=== PATIENT | female | born 1980 | race Caucasian/White ===

== ENCOUNTER → 2023-10-02 | Emergency (ER) | payer SELFPAY ==
[~2023-10-02] MED LIST: HALOPERIDOL LACT 5 MG/ML INJ ONE; KETOROLAC 30 MG/ML INJ ONE; MORPHINE 4 MG/ML SYR ONE; NA CHLORIDE 0.9% 50 ML ONE; ONDANSETRON 4 MG/2 ML VIAL ONE
--- OUTSIDE RECORDS SUMMARY | 2023-10-02 06:31 | XMS REPORT | Continuity of Care Document ---
Author Name Unknown Address [address] [facility] [address] [place] [address] [facility] Address [address] [facility] [address] [place] [address] Care Team Providers Care Collection Supervisor Name Role Phone Unavailable Unavailable Unavailable Encounters Start Date/Time End Date/Time Encounter Type Admission Type Attending Clinicians [facility] Facility Care Department Encounter ID Source 2023-08-25 08:32:28 2023-08-25 08:32:28 Outpatient SFA SFA [id number] Eyad Smith [place] 2023-07-24 08:30:50 2023-07-24 08:30:50 Outpatient SFA SFA [id number] Eyad Smith [place] 2023-06-24 08:14:12 2023-06-24 08:14:12 Outpatient SFA SFA [id number] Eyad Smith [place] 2023-06-04 10:44:13 2023-06-04 10:44:13 Outpatient SFA SFA 23 Eyad Smith [place] 2023-06-02 11:11:12 2023-06-02 11:11:12 Outpatient SFA SFA [id number] Eyad Smith [place] 2023-05-22 08:34:42 2023-05-22 08:34:42 Outpatient SFA SFA [id number] Eyad Smith [place] 2023-04-21 08:22:11 2023-04-21 08:22:11 Outpatient SFA SFA [id number] Eyad Smith [place] 2023-03-17 08:56:47 2023-03-17 08:56:47 Outpatient SFA SFA [id number] Eyad Smith [place] 2023-02-13 09:17:17 2023-02-13 09:17:17 Outpatient SFA SFA [id number] Eyad He 2023-01-15 08:26:35 2023-01-15 08:26:35 Outpatient [facility] [id number] Eyad He 2023-01-01 08:32:25 2023-01-01 08:32:25 Outpatient [facility] [id number] Eyad He 2022-12-18 08:30:01 2022-12-18 08:30:01 Outpatient [facility] [id number] Eyad He 2022-10-03 09:52:23 2022-10-03 09:52:23 Outpatient [facility] [id number] Eyad He Results Test Description Test Time Test Comments Results Result Co mments Source SCR MAMM BILATERAL ASHLEY CAD DIGITAL 2023-02-05 15:49:25 Name: Rosibel : 1980 Sex: F * - SCR MAMM BILATERAL ASHLEY CAD DIGITALBILATERAL DIGITAL SCREENING MAMMOGRAM 3D/2D WITH CAD: 01/31/2023LINICAL: Asymptomatic. Digital breast tomosynthesis was performed in addition to routine CC and MLO views. Current mammographic images were evaluated by [employer] CAD (computer-aided detection) software. Comparison is made to exam dated 06/02/2020 mammogram - [facility]. The tissue of both breasts is predominantly fatty. No suspicious mass, architectural distortion, malignant type calcification, or lymph node abnormality detected. Breast architecture is stable compared to prior exams.IMPRESSION: BENIGNThere is no mammographic evidence of malignancy. Resume annual screening mammography in one year. (02/01/2024) Lula mitchell/penrad:02/05/2023 15:49:25 Sales Operations: Deidra Martinez FW, [facility]-FWletter sent: BIRADS 1-2 Normal Mammogram BI-RADS: 2 Benign TSH, THIRD [id number] 06:09:24* Test Item Value Reference Range Interpretation Comme nts TSH, THIRD GENERATION (test code = 2821) 1.320 UIU/ML 0.400-4.100 [facility] has impo rtant pathology staff changes effective 12/11/2022. New pathology staff will provide uninterrupted, excellent patient care and clinical consultation. See URL: [email or web address]. UNLESS OTHERWISE INDICATED, ALL TESTING PERFORMED AT [facility] [address] [place] [id number] NET SQL DEVELOPER: MAYRA MARAVILLA M.D. CLIA NUMBER [id number] [place]. [id number] COMPREHENSIVE METABOLIC [id number] 04:57:47* Test Item Value Reference Range Interpretation Comme nts GLUCOSE (test code = 2217) 113 MG/DL 70-99 H BUN (test code = 2208) 15 MG/DL 6-20 CREATININE (test code = 2214) 0.61 MG/DL 0.60-1.30 eGFR (2020 CKD-EPI) (test code = 64971) 113 ML/MIN/1.73 >60 CALC BUN/CREAT (test code = 2235) 25 RATIO 6-28 SODIUM (test code = 2231) 139 MEQ/L 133-146 POTASSIUM (test code = 2228) 4.5 MEQ/L 3.5-5.4 CHLORIDE (test code = 2215) 100 MEQ/L 95-107 CARBON DIOXIDE (test code = 2206) 24 MEQ/L 19-31 CALCIUM (test code = 2209) 10.3 MG/DL 8.5-10.5 PROTEIN, TOTAL (test code = 2229) 7.3 G/DL 6.1-8.3 ALBUMIN (test code = 2201) 4.6 G/DL 3.5-5.2 CALC GLOBULIN (test code = 2240) 2.7 G/DL 1.9-3.7 CALC A/G RATIO (test code = 2234) 1.7 RATIO 1.0-2.6 BILIRUBIN, TOTAL (test code = 7) 0.4 MG/DL See_Comment [Automated me ssage] The system which generated this result transmitted reference range: <=1.2. The reference range was not used to interpret this result as normal/abnormal. ALKALINE PHOSPHATASE (test code = 4) 102 U/L 40-115 AST (test code = 8) 12 U/L 9-40 ALT (test code = 9) 15 U/L 5-40 LIPID [id number] 04:57:47* Test Item Value Reference Range Interpretation Comme nts CHOLESTEROL (test code = 0) 204 MG/DL <200 H TRIGLYCERIDES (test code = 2) 126 MG/DL <150 HDL CHOLESTEROL (test code = 0) 59 MG/DL >39 CALC LDL CHOL (test code = 2236) 121 MG/DL <100 H NOTE: CALCULATED LDL IS BASED ON CHRISTINE-MOTA METHOD WHICHINCLUDES ADJUSTABLE TRIGLYCERIDE:VLDL CHOLESTEROL RATIO.THIS FACTOR VARIES BY MEASURED TRIGLYCERIDE AND NON-HDLCHOLESTEROL CONCENTRATIONS WITH INCREASED CALCULATED LDL SEENIN HIGHER TRIGLYCERIDE OR LOWER NON-HDL SPECIMENS. FOR MOREINFORMATION, SEE CLIENT ANNOUNCEMENT AT [email or web address] [email or web address] RATIO LDL/HDL (test code = 2237) 2.05 RATIO <3.22 HEMOGLOBIN [id number] 03:35:58* Test Item Value Reference Range Interpretation Comme nts HEMOGLOBIN A1c (test code = 79636) 5.6 % 4.2-5.6 CBC W/AUTO DIFF WITH [id number] 03:10:01* Test Item Value Reference Range Interpretation Comme nts WBC (test code = 1001) 8.6 K/UL 3.5-11.0 RBC (test code = 1002) 4.87 M/UL 3.80-5.40 HEMOGLOBIN (test code = 1003) 14.4 G/DL 11.5-15.5 HEMATOCRIT (test code = 1004) 43.3 % 34.0-45.0 MCV (test code = 1005) 88.9 fL 80.0-99.0 MCH (test code = 1006) 29.6 PG 25.0-33.0 MCHC (test code = 1007) 33.3 G/DL 31.0-36.0 RDW (test code = 1038) 13.0 % 11.5-15.0 NEUTROPHILS (test code = 1008) 76.9 % LYMPHOCYTES (test code = 1010) 17.6 % MONOCYTES (test code = 1011) 4.0 % EOSINOPHILS (test code = 1012) 0.7 % BASOPHILS (test code = 1013) 0.5 % IMMATURE GRANULOCYTES (test code = 1036) 0.3 % NUCLEATED RBCS (test code = 1065) 0.0 /100 WBC'S See_Comment [Automated messa ge] The system which generated this result transmitted reference range: 0.0. The reference range was not used to interpret this result as normal/abnormal. PLATELET COUNT (test code = 1015) 437 K/UL 130-400 H ABSOLUTE NEUTROPHILS (test code = 1066) 6.61 K/UL 1.50-7.50 ABSOLUTE LYMPHOCYTES (test code = 1067) 1.51 K/UL 1.00-4.00 ABSOLUTE MONOCYTES (test code = 1068) 0.34 K/UL 0.20-1.00 ABSOLUTE EOSINOPHILS (test code = 1040) 0.06 K/UL 0.00-0.50 ABSOLUTE BASOPHILS (test code = 1069) 0.04 K/UL 0.00-0.20 ABS IMMATURE GRANULOCYTES (test code = 1020) 0.03 K/UL 0.00-0.10 ABS NUCLEATED RBCS (test code = 32837) 0.00 K/UL 0.00-0.11 CBC W/AUTO DIFF WITH [id number] 03:55:08* Test Item Value Reference Range Interpretation Comme nts WBC (test code = 1001) 7.1 K/UL 3.5-11.0 RBC (test code = 1002) 5.03 M/UL 3.80-5.40 HEMOGLOBIN (test code = 1003) 14.3 G/DL 11.5-15.5 HEMATOCRIT (test code = 1004) 43.7 % 34.0-45.0 MCV (test code = 1005) 86.9 fL 80.0-99.0 MCH (test code = 1006) 28.4 PG 25.0-33.0 MCHC (test code = 1007) 32.7 G/DL 31.0-36.0 RDW (test code = 1038) 13.2 % 11.5-15.0 NEUTROPHILS (test code = 1008) 61.4 % LYMPHOCYTES (test code = 1010) 30.2 % MONOCYTES (test code = 1011) 4.7 % EOSINOPHILS (test code = 1012) 2.8 % BASOPHILS (test code = 1013) 0.6 % IMMATURE GRANULOCYTES (test code = 1036) 0.3 % NUCLEATED RBCS (test code = 1065) 0.0 /100 WBC'S See_Comment [Automated messa ge] The system which generated this result transmitted reference range: 0.0. The reference range was not used to interpret this result as normal/abnormal. PLATELET COUNT (test code = 1015) 415 K/UL 130-400 H ABSOLUTE NEUTROPHILS (test code = 1066) 4.33 K/UL 1.50-7.50 ABSOLUTE LYMPHOCYTES (test code = 1067) 2.13 K/UL 1.00-4.00 ABSOLUTE MONOCYTES (test code = 1068) 0.33 K/UL 0.20-1.00 ABSOLUTE EOSINOPHILS (test code = 1040) 0.20 K/UL 0.00-0.50 ABSOLUTE BASOPHILS (test code = 1069) 0.04 K/UL 0.00-0.20 ABS IMMATURE GRANULOCYTES (test code = 1020) 0.02 K/UL 0.00-0.10 ABS NUCLEATED RBCS (test code = 28168) 0.00 K/UL 0.00-0.11 COMPREHENSIVE METABOLIC [id number] 03:41:26* Test Item Value Reference Range Interpretation Comme nts GLUCOSE (test code = 2217) 96 MG/DL 70-99 BUN (test code = 2207) 12 MG/DL 6-20 CREATININE (test code = 2214) 0.57 MG/DL 0.60-1.30 L eGFR (2020 CKD-EPI) (test code = 07603) 116 ML/MIN/1.73 >60 CALC BUN/CREAT (test code = 2235) 21 RATIO 6-28 SODIUM (test code = 223) 141 MEQ/L 133-146 POTASSIUM (test code = 2227) 4.4 MEQ/L 3.5-5.4 CHLORIDE (test code = 2215) 98 MEQ/L 95-107 CARBON DIOXIDE (test code = 2205) 25 MEQ/L 19-31 CALCIUM (test code = 2208) 9.9 MG/DL 8.5-10.5 PROTEIN, TOTAL (test code = 222) 7.7 G/DL 6.1-8.3 ALBUMIN (test code = 2201) 4.3 G/DL 3.5-5.2 CALC GLOBULIN (test code = 2240) 3.4 G/DL 1.9-3.7 CALC A/G RATIO (test code = 2234) 1.3 RATIO 1.0-2.6 BILIRUBIN, TOTAL (test code = 2207) 0.4 MG/DL See_Comment [Automated me ssage] The system which generated this result transmitted reference range: <=1.2. The reference range was not used to interpret this result as normal/abnormal. ALKALINE PHOSPHATASE (test code = 2203) 111 U/L 40-113 AST (test code = 2218) 16 U/L 9-40 ALT (test code = 2219) 18 U/L 5-40 LIPID [id number] 03:41:26* Test Item Value Reference Range Interpretation Comme nts CHOLESTEROL (test code = 2210) 204 MG/DL <200 H TRIGLYCERIDES (test code = 2232) 70 MG/DL <150 HDL CHOLESTEROL (test code = 2220) 67 MG/DL >39 CALC LDL CHOL (test code = 2237) 121 MG/DL <100 H NOTE: CALCULATED LDL IS BASED ON CHRISTINE-MOTA METHOD WHICHINCLUDES ADJUSTABLE TRIGLYCERIDE:VLDL CHOLESTEROL RATIO.THIS FACTOR VARIES BY MEASURED TRIGLYCERIDE AND NON-HDLCHOLESTEROL CONCENTRATIONS WITH INCREASED CALCULATED LDL SEENIN HIGHER TRIGLYCERIDE OR LOWER NON-HDL SPECIMENS. FOR MOREINFORMATION, SEE CLIENT ANNOUNCEMENT AT [email or web address] RISK RATIO LDL/HDL (test code = 2238) 1.81 RATIO <3.22 UNLESS OTHERW ISE INDICATED, ALL TESTING PERFORMED [facility] [address] [place] [address] NET SQL DEVELOPER: MÓNICA DOBBS M.D. CLIA NUMBER [id number] [place]. [id number] SCR MAMM BILATERAL ASHLEY CAD [id number] 13:00:43- SCR MAMM BILATERAL ASHLEY CAD DIGITALBILATERAL FIRST [place]ER DIGITAL SCREENING MAMMOGRAM 3D/2D WITH CAD: 06/02/2020CLINICAL: Asymptomatic. Digital breast tomosynthesis was performed in addition to routine CC and MLO views. Current mammographic images were evaluated by either a [employer] or a [employer] CAD (computer aided detection system). No prior exams were available for comparison. The tissue of both breasts is predominantly fatty. No suspicious mass, architectural distortion, malignant type calcification, or lymph node abnormality detected. IMPRESSION: NEGATIVEThere is no mammographic evidence of malignancy. Resume annual screening mammography in one year. Charles cole/joaquin:06/05/2020 13:00:43 Attending Technologist: Gloria aHrrell MM, [facility]ography[facility] Technologist: Rox Adhikari MM, [facility]ography[facility] sent: BIRADS 1-2 Normal Mammogram BI-RADS: 1 Negative
[2023-10-02 08:35] LABS: Absolute Lymphocytes (CBC) 1.4 K/uL (0.7-4.9); Hematocrit 41.6 % (36.0-45.0); MPV 7.9 fL (7.6-11.3); Platelets 299 thou/uL (152-406); RBC Red Blood Cell Count 4.73 M/uL (3.86-4.86)
[2023-10-02 08:40] LABS: Albumin 3.4 g/dL (3.4-5.0); Bilirubin Total 0.7 mg/dL (0.2-1.0); Potassium 3.8 mEq/L (3.5-5.1); Protein, Total 7.3 g/dL (6.4-8.2)
--- NOTE | 2023-10-02 08:52 | RAD REPORT ---
EXAM DESCRIPTION: CT - Stone Protocol - 10/02/2023 8:35 am CLINICAL HISTORY: Abdominal pain. COMPARISON: None. TECHNIQUE: Computed axial tomography of the abdomen pelvis was obtained without oral or IV contrast. Lack of IV and oral contrast limits evaluation of solid organs, appendix, bowel, and vessels. Le l reformatted images were obtained and reviewed. All CT scans are performed using dose optimization technique as appropriate and may include automated exposure control or mA/KV adjustment according to patient size. FINDINGS: A renal calculus is not seen. An ureteral calculus is not noted. A bladder calculus is not present. No hydronephrosis The pancreas is normal size. Mild peripancreatic stranding. No pseudocyst. Liver, spleen, adrenals grossly normal There is no evidence of diverticulitis. The appendix appears normal No adnexal mass Marked osteoarthritis left hip IMPRESSION: Negative for a genitourinary calculus Mild pancreatitis
--- NOTE | 2023-10-02 09:24 | ER ---
Nurse's Notes [facility] Name: Rosibel Rajan Age: 43 yrs Sex: Female : 1980 Arrival Date: 10/02/2023 Time: 06:27 Bed 3 Private MD: Diagnosis: Acute pancreatitis without necrosis or infection, unspecified Presentation: 10/02 06:44 Chief complaint: Spouse and/or significant other states: Pain in the lower back that jb4 started Friday. Nausea, denies vomiting/ diarrhea. Coronavirus screen: At this time, the client does not indicate any symptoms associated with coronavirus-19. Ebola Screen: No symptoms or risks identified at this time. Initial Sepsis Screen: Does the patient meet any 2 criteria? HR > 90 bpm. Yes Does the patient have a suspected source of infection? No. Patient's initial sepsis screen is negative. Risk Assessment: Do you want to hurt yourself or someone else? Patient reports no desire to harm self or others. Onset of symptoms was September 30, 2023. Transition of care: patient was not received from another setting of care. 06:44 Method Of Arrival: Wheelchair jb4 06:44 Acuity: ALICE 3 jb4 Historical: - Allergies: 06:46 Cipro; jb4 - PMHx: 06:46 Rheumatoid arthritis; jb4 - PSHx: 06:46 None; jb4 - Immunization history:: Adult Immunizations up to date. - Social history:: Smoking status: Patient denies any tobacco usage or history of. - Family history:: not pertinent. Screenin:17 [facility] ED Fall Risk Assessment (Adult) History of falling in the last 3 months, kc6 including since admission No falls in past 3 months (0 pts) Confusion or Disorientation No (0 pts) Intoxicated or Sedated No (0 pts) Impaired Gait No (0 pts) Mobility Assist Device Used No (0 pt) Altered Elimination No (0 pt) Score/Fall Risk Level 0 - 2 = Low Risk. Abuse screen: Denies threats or abuse. Denies injuries from another. Nutritional screening: No deficits noted. Tuberculosis screening: No symptoms or risk factors identified. Assessment: 08:15 General: Appears in no apparent distress. uncomfortable, Behavior is calm, cooperative, ph Denies fever. Pain: Complains of pain in low back area. Neuro: Level of Consciousness is awake, alert, obeys commands, Oriented to person, place, time, situation. Cardiovascular: Capillary refill < 3 seconds in bilateral fingers Patient's skin is warm and dry. Respiratory: Airway is patent Respiratory effort is even, unlabored, Respiratory pattern is regular, symmetrical. GI: Bowel sounds present X 4 quads. Reports lower abdominal pain, nausea, Patient currently denies diarrhea, vomiting. Derm: Skin is pink, warm \T\ dry. 09:15 Reassessment: Patient appears in no apparent distress at this time. No changes from kc6 previously documented assessment. Patient and/or family updated on plan of care and expected duration. Pain level reassessed. Patient is alert, oriented x 3, equal unlabored respirations, skin warm/dry/pink. 09:38 Reassessment: Patient appears in no apparent distress at this time. Patient and/or ph family updated on plan of care and expected duration. Pain level reassessed. Patient is alert, oriented x 3, equal unlabored respirations, skin warm/dry/pink. Patient states feeling better. Vital Signs: 06:44 BP 127 / 76; Pulse 105; Resp 16; Pulse Ox 99% on R/A; Weight 122.92 kg; Height 5 ft. 3 jb4 in. ; 08:18 BP 105 / 68; Pulse 84; Resp 16 S; Pulse Ox 98% on R/A; kc6 09:38 BP 103 / 76; Pulse 81; Resp 18; Temp 97.9; Pulse Ox 99% on R/A; ph 06:44 Body Mass Index 48.01 (122.92 kg, 160.02 cm) jb4 ED Course: 06:30 Patient arrived in ED. jj6 06:43 Chris Reed MD is Attending Physician. sp4 06:46 Triage completed. jb4 06:46 Arm band placed on right wrist. jb4 07:28 Attending Physician role handed off by Chris Reed MD ec2 07:28 Edward Stuart MD is Attending Physician. ec2 07:59 Marian Leigh, JOSHUA is Primary Nurse. ph 08:17 Patient has correct armband on for positive identification. Bed in low position. Side kc6 rails up X 1. Side rails up X2. Adult w/ patient. Client placed on continuous cardiac and pulse oximetry monitoring. NIBP monitoring applied. 08:17 Inserted saline lock: 20 gauge in right antecubital area, using aseptic technique. kc6 Blood collected. Patient maintains SpO2 saturation greater than 95% on room air. 08:36 Stone Protocol In Process Unspecified. EDMS 09:40 No provider procedures requiring assistance completed. IV discontinued, intact, ph bleeding controlled, No redness/swelling at site. Pressure dressing applied. Administered Medications: 08:16 Drug: TORadol - Ketorolac IVP 15 mg IVP once Route: IVP; Site: right antecubital; kc6 09:26 Follow up: Response: No adverse reaction; Pain is decreased kc6 08:17 Drug: Haloperidol IVP 2.5 mg/50 mL 2.5 mg IVP once; Place patient on a bus monitor kc6 Route: IVP; Site: right antecubital; 09:27 Follow up: Response: No adverse reaction; Nausea is decreased; Vomiting decreased kc6 08:17 Drug: Ondansetron IVP 4 mg IVP once; over 2 minutes Route: IVP; Site: right antecubital;kc6 09:26 Follow up: Response: No adverse reaction; Nausea is decreased; Vomiting decreased kc6 08:17 Drug: morphine IVP or IV 4 mg IVP once over 4 mins Route: IVP; Infused Over: 4 mins; kc6 Site: right antecubital; 09:26 Follow up: Response: No adverse reaction; Pain is decreased; RASS: Alert and Calm (0) kc6 Medication: 09:40 VIS not applicable for this client. ph Outcome: 09:24 Discharge ordered by . ec2 09:40 Discharged to home via wheelchair, with significant other, ph 09:40 Condition: good 09:40 Discharge instructions given to patient, significant other, Instructed on discharge instructions, follow up and referral plans. medication usage, Demonstrated understanding of instructions, follow-up care, medications, Prescriptions given X 2, 09:41 Patient left the ED. ph Signatures: Dispatcher [employer] EDMarian Cordova RN RN Leo Chaidez RN RN jb4 Angela Fletcher6 Carli Underwood RN RN kc6 Chris Reed MD MD sp4 Edward Stuart MD MD ec2
--- NOTE | 2023-10-02 09:25 | EDPHYS ---
Physician Documentation [facility] Name: Rosibel Rajan Age: 43 yrs Sex: Female : 1980 Arrival Date: 10/02/2023 Time: 06:27 Bed 3 Private MD: ED Physician Edward Stuart HPI: 10/02 06:43 This 43 yrs old Female presents to ER via Unassigned with complaints of sp4 Abdominal Pain, Nausea/Vomiting. 06:49 Patient is 43-year-old female with history of rheumatoid arthritis ambulates with sp4 crutches, presents with right upper back pain also right flank pain starting 3 days ago associated with nausea. 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 Patient denied pain and burning with urination, denied fever.. Historical: - Allergies: 06:46 Cipro; jb4 - PMHx: 06:46 Rheumatoid arthritis; jb4 - PSHx: 06:46 None; jb4 - Immunization history:: Adult Immunizations up to date. - Social history:: Smoking status: Patient denies any tobacco usage or history of. - Family history:: not pertinent. ROS: 06:49 Constitutional: Negative for fever, chills, and weight loss, positive for right upper sp4 back pain, positive for right flank pain 06:49 All other systems are negative, Exam: 06:49 Constitutional: This is a well developed, well nourished patient who is awake, alert, sp4 and in no acute distress. Morbidly obese female, tachycardic on arrival Head/Face: Normocephalic, atraumatic. Eyes: Pupils equal round and reactive to light, extra-ocular motions intact. Lids and lashes normal. Conjunctiva and sclera are not injected. Cornea within normal limits. Periorbital areas with no swelling, redness, or edema. ENT: Nares patent. No nasal discharge, no septal abnormalities noted. Tympanic membranes are normal and external auditory canals are clear. Oropharynx with no redness, swelling, or masses, exudates, or evidence of obstruction, uvula midline. Mucous membranes moist. Neck: Trachea midline, no thyromegaly or masses palpated, and no cervical lymphadenopathy. Supple, full range of motion without nuchal rigidity, or vertebral point tenderness. Chest/axilla: Normal chest wall appearance and motion. Nontender with no deformity. No lesions are appreciated. Cardiovascular: Regular rate and rhythm with a normal S1 and S2. No gallops, murmurs, or rubs. Normal PMI, no JVD. No pulse deficits. Respiratory: Lungs have equal breath sounds bilaterally, clear to auscultation and percussion. No rales, rhonchi or wheezes noted. No increased work of breathing, no retractions or nasal flaring. Abdomen/GI: Soft, non-tender, with normal bowel sounds. No distension or tympany. No guarding or rebound. No evidence of tenderness throughout. Back: No spinal tenderness. No costovertebral tenderness. Skin: Warm, dry with normal turgor. Normal color with no rashes, no lesions, and no evidence of cellulitis. MS/ Extremity: Pulses equal, no cyanosis. Neurovascular intact. Full, normal range of motion. Neuro: Awake and alert, GCS 15, oriented to person, place, time, and situation. Cranial nerves II-XII grossly intact. Motor strength 5/5 in all extremities. Sensory grossly intact. Psych: Awake, alert, with orientation to person, place and time. Behavior, mood, and affect are within normal limits Vital Signs: 06:44 BP 127 / 76; Pulse 105; Resp 16; Pulse Ox 99% on R/A; Weight 122.92 kg; Height 5 ft. 3 jb4 in. ; 08:18 BP 105 / 68; Pulse 84; Resp 16 S; Pulse Ox 98% on R/A; kc6 09:38 BP 103 / 76; Pulse 81; Resp 18; Temp 97.9; Pulse Ox 99% on R/A; ph 06:44 Body Mass Index 48.01 (122.92 kg, 160.02 cm) jb4 MDM: 06:48 Patient medically screened. sp4 07:33 Data reviewed: vital signs. Transition of care: Care assumed from Chris Reed MD. ec2 ED course: Patient signed out to me by previous physician, in brief patient arrives today due to concern for right-sided flank and back pain, plan is to follow-up imaging and labs and reassess patient's pain.. 09:16 ED course: CBC is reassuring. Metabolic with appropriate electrolytes and renal ec2 function. Lipase within normal ranges. CT imaging shows mild pancreatitis. . 09:23 ED course: On reassessment patient reports marked improvement in her symptoms. Patient ec2 does have pancreatitis, patient is on Wegovy. She states that her pain is tolerable enough for her to return home and states that she has been tolerating p.o. intake. I offered her admission however she declined, ultimately will discharge and instructed her on [id number] medications and will prescribe her pain medications and nausea medications. I instructed her to follow-up with her primary care doctor and discussed the Wegovy administration. Return precautions given.. 10/02 06:48 Order name: CBC with Diff; Complete Time: 09:15 sp4 10/02 06:48 Order name: CMP; Complete Time: 09:15 sp4 10/02 06:48 Order name: Lipase; Complete Time: 09:15 sp4 10/02 06:52 Order name: Stone Protocol; Complete Time: 09:15 EDMS 10/02 06:48 Order name: IV Saline Lock; Complete Time: 08:16 sp4 10/02 06:48 Order name: Labs collected and sent; Complete Time: 08:16 sp4 Administered Medications: 08:16 Drug: TORadol - Ketorolac IVP 15 mg IVP once Route: IVP; Site: right antecubital; kc6 09:26 Follow up: Response: No adverse reaction; Pain is decreased kc6 08:17 Drug: Haloperidol IVP 2.5 mg/50 mL 2.5 mg IVP once; Place patient on a power washer kc6 Route: IVP; Site: right antecubital; 09:27 Follow up: Response: No adverse reaction; Nausea is decreased; Vomiting decreased kc6 08:17 Drug: Ondansetron IVP 4 mg IVP once; over 2 minutes Route: IVP; Site: right antecubital;kc6 09:26 Follow up: Response: No adverse reaction; Nausea is decreased; Vomiting decreased kc6 08:17 Drug: morphine IVP or IV 4 mg IVP once over 4 mins Route: IVP; Infused Over: 4 mins; kc6 Site: right antecubital; 09:26 Follow up: Response: No adverse reaction; Pain is decreased; RASS: Alert and Calm (0) kc6 Disposition Summary: 10/02/23 09:24 Discharge Ordered Notes: Location: Home ec2 Condition: Stable ec2 Diagnosis - Acute pancreatitis without necrosis or infection, unspecified ec2 Followup: ec2 - With: Private Physician - When: - Reason: Recheck today's complaints Discharge Instructions: - Discharge Summary Sheet ec2 - Acute Pancreatitis, [id number] ec2 Forms: - Medication Reconciliation Form ec2 - Thank You Letter ec2 - Antibiotic Education ec2 - Prescription Opioid Use ec2 - Patient Portal Instructions ec2 - Leadership Thank You Letter ec2 Prescriptions: - acetaminophen-codeine 300-15 mg Oral tablet - take 2 tablet ORAL route once; 20 tablet; Refills: 0, Product Selection ec2 Permitted - Zofran 4 mg Oral Tablet - take 1 tablet ORAL route every 12 hours As needed; 20 tablet; Refills: 0, ec2 Product Selection Permitted Signatures: Dispatcher [employer] Leo Up RN RN jb4 Carli Underwood RN RN kc6 Chris Reed MD MD sp4 Edward Stuart MD MD ec2 Corrections: (The following items were deleted from the chart) 06:50 06:49 Abdomen Pelvis Wo [id number] ordered. EDMS EDMS
[2023-10-02 11:10] VITALS: BP 103/76; TEMP 97.9; O2SAT 99
== END ==
LOC: ER 06:27
DX: K85.90 Acute pancreatitis without necrosis or infection, unspecified (principal)
CPT/HCPCS: 36415; 74176; 76377; 80053; 83690; 85025; 96374; 96375; 99285; J1630; J2405